=== PATIENT | female | born 1935 | race Caucasian/White ===

== ENCOUNTER → 2016-07-24 | Outpatient (CLI) | payer MEDICARE, BC | LOC: MC.RAD 11:24 | DX: Z12.31 Encounter for screening mammogram for malignant neoplasm of breast (principal); Z80.3 Family history of malignant neoplasm of breast ==

== ENCOUNTER → 2017-08-26 | Outpatient (CLI) | payer MEDICARE, BC | LOC: MC.RAD 13:11 | DX: Z12.31 Encounter for screening mammogram for malignant neoplasm of breast (principal) ==

== ENCOUNTER → 2018-09-24 | Outpatient (CLI) | payer MEDICARE, BC | LOC: MC.RAD 14:14 | DX: Z12.31 Encounter for screening mammogram for malignant neoplasm of breast (principal) ==

== ENCOUNTER → 2019-10-29 | Outpatient (CLI) | payer MEDICARE, BC ==
[~2019-10-29] MED LIST: ASPIRIN E.C. 8181 MG PO; AZULFIDINE500 MG/TAB PO; CALCIUM 600-D 61 TAB PO; CLARITIN LIQUI-10 MG PO; FOLIC ACID 11 MG/TA1 PO; MAXZIDE-25MG TA1 TAB PO; METHOTREXA2.5 MG/TAB PO; NORITATE1% TOP; OMNICEF 300MG300 MG PO; RITUXAN 10100 MG/10 IV; RITUXAN 50500 MG/50 IV; SYNTHROID0.175 MG PO; VASOTEC 5MG5 MG/TAB PO; ZANTAC 7575 MG PO; ZESTRIL 5MG5 MG PO; ZITHROMAX Z PA250 MG PO
== END ==
LOC: MC.RAD 14:13
DX: Z12.31 Encounter for screening mammogram for malignant neoplasm of breast (principal)

== ENCOUNTER → 2020-11-21 | Outpatient (CLI) | payer MEDICARE, BC | LOC: MC.RAD 10:29 | DX: Z12.31 Encounter for screening mammogram for malignant neoplasm of breast (principal) ==

== ENCOUNTER 2021-08-26 11:08 | Emergency (ER) | payer MEDICARE, BC ==
[~2021-08-26] VITALS: Ht 157.5 cm; Wt 59.1 kg
[2021-08-26 11:34] LABS: HEMATOCRIT 38.7 % (37.0-47.0); HEMOGLOBIN 12.6 g/dl (12.5-16.0); MEAN CELL VOLUME 99 fl (80.0-100.0); MEAN CORPUSCULAR HEMOGLOBIN 32 pg (27-31); MEAN CORPUSCULAR HGB CONC 33 g/dl (33.0-37.0); MEAN PLATELET VOLUME 10.8 fl (7.4-10.4); PLATELET COUNT 220 K/mm3 (130-400); RED BLOOD COUNT 3.92 M/mm3 (4.10-5.30); REDCELL DISTRIBUTION WIDTH-CV 12.6 % (11.5-14.5)
[2021-08-26 11:48] LABS: ALANINE AMINOTRANSFERASE 21 U/L (0-55); ALBUMIN 4.2 gm/dL (3.4-4.8); ALKALINE PHOSPHATASE 66 U/L (40-150); ANION GAP 12 mmol/L (7-16); AST,SGOT 25 U/L (5-34); BILIRUBIN,TOTAL 0.5 mg/dL (0.2-1.2); BLOOD UREA NITROGEN 26 mg/dL (10-20); CALCIUM 9.8 mg/dL (8.4-10.2); CARBON DIOXIDE 24 mmol/L (23-31); CHLORIDE 101 mmol/L (98-107); GLUCOSE 122 mg/dL (70-99); POTASSIUM 4.6 mmol/L (3.5-4.5); SODIUM 137 mmol/L (136-145); TOTAL PROTEIN 6.8 gm/dL (6.2-8.1)
[2021-08-26 11:51] LABS: BAND 1 % (0-10); EOSINOPHIL 1 % (0-4); LYMPHOCYTE 42 % (20.0-51.0); NEUTROPHILS 48 % (42.0-75.2); PLATELET ESTIMATE NORMAL (NORMAL)
[2021-08-26 11:55] LABS: TROPONIN-I < 0.010 ng/mL (0.00-0.033)
[2021-08-26 13:36] VITALS: BP 163/59; PULSE 67
== END 2021-08-26 13:36 | disposition home or self-care (01) ==
LOC: COL.ER 11:08
PROVIDERS: Physician Assistant
DX: I10 Essential (primary) hypertension (principal); J84.10 Pulmonary fibrosis, unspecified; Z91.040 Latex allergy status

== ENCOUNTER → 2021-12-19 | Outpatient (CLI) | payer MEDICARE, BC | LOC: MC.RAD 10:46 | DX: Z12.31 Encounter for screening mammogram for malignant neoplasm of breast (principal) ==

== ENCOUNTER 2022-07-22 17:47 | Inpatient (IN) | payer MEDICARE, BC ==
[~2022-07-22] VITALS: Ht 160 cm; Wt 55.9 kg
[~2022-07-22 17:47] MED LIST changes: +CEPHALEXIN500 M1 PO; +EUTHYROX75 MCG PO; +PEPCID COMPLETE1 CTB PO
[2022-07-22 21:52] VITALS: BP 136/47; PULSE 111; TEMP 97.9
--- NOTE | 2022-07-22 21:53 | NUR ---
PT ARRIVED TO UNIT AROUND 2134. PT ASSESSMENT AND ADMISSION COMPLETED AT THIS TIME
[2022-07-22 22:04] LABS: BASO % 0.2 % (0.0-2.0); EOS % 0.4 % (0.0-4.0); GRAN # 9.3 K/mm3 (1.4-6.5); GRAN % 84.7 % (42.2-75.2); HEMOGLOBIN 10.1 g/dl (12.5-16.0); LYMPH # 0.7 K/mm3 (1.2-3.4); LYMPH % 6.3 % (20.0-51.0); MEAN CELL VOLUME 87 fl (80.0-100.0); MEAN CORPUSCULAR HEMOGLOBIN 28 pg (27-31); MEAN CORPUSCULAR HGB CONC 33 g/dl (33.0-37.0); MONO # 0.8 K/mm3 (0.1-0.6); MONO % 7.5 % (1.7-9.3); PLATELET COUNT 646 K/mm3 (130-400); RED BLOOD COUNT 3.56 M/mm3 (4.10-5.30); REDCELL DISTRIBUTION WIDTH-CV 12.7 % (11.5-14.5)
[2022-07-22 22:05] LABS: HEMATOCRIT 30.9 % (37.0-47.0)
[2022-07-22 22:18] LABS: ALBUMIN 2.1 gm/dL (3.4-4.8); BILIRUBIN,TOTAL 0.6 mg/dL (0.2-1.2); CALCIUM 9.9 mg/dL (8.4-10.2); CREATININE, serum 0.98 mg/dL (0.57-1.11); MAGNESIUM 1.5 mg/dL (1.6-2.6); POTASSIUM 4.6 mmol/L (3.5-4.5)
[2022-07-22 23:33] VITALS: BP 137/43; PULSE 103; TEMP 99.9
[2022-07-23 04:38] VITALS: BP 117/48; PULSE 87; TEMP 98.2
--- NOTE | 2022-07-23 04:54 | NUR ---
86 yo female admitted for further care and management of possible community acquired pneumonia that has failed outpatient therapy. ht 160 cm wt 55.9 kg SCr 0.98 with estimated CrCl ~40 ml/min half life 14.7 hours Plan: Will give an initial loading dose of vancomycin 1000 mg x1 (17.9 mg/kg); followed by a maintenance regimen of vancomycin 1000 mg q18h to target a goal trough of 15-20 mcg/ml. Will follow patient's renal function, micro data, and vancomycin levels as indicated to assess for any necessary changes to regimen. Thank you for this dosing consult.
--- NOTE | 2022-07-23 05:57 | NUR ---
PT WAS ADMITTED TO ROOM 312 OVERNIGHT. ASSESSMENT AND ADMISSION COMPLETED WELL PATIENTS MED REC. PT WAS ACCOMPANIED BY HER DAUGHTER. IV STARTED, FLUIDS STARTED ALONG WITH IV ABX AND MAG REPLACEMENT. PT WAS PUT ON 2L OF O2 AT 0400 VITALS TO MAINTAIN AN OXYGEN SATURATION GREATER THAN 90% CT SCAN COMPLETED OVERNIGHT, UA AND SPUTUM SAMPLE STILL NEEDED AT THIS TIME. PT APPEARS TO BE SLEEPING AT THIS TIME, NO NEW REQUESTS.
[2022-07-23 06:50] LABS: BASO # 0.1 K/mm3 (0.0-0.2); BASO % 0.6 % (0.0-2.0); CALCIUM 8.4 mg/dL (8.4-10.2); CREATININE, serum 0.82 mg/dL (0.57-1.11); EOS # 0.1 K/mm3 (0.0-0.7); EOS % 0.9 % (0.0-4.0); GRAN # 6.4 K/mm3 (1.4-6.5); GRAN % 74.2 % (42.2-75.2); LYMPH # 1.1 K/mm3 (1.2-3.4); LYMPH % 13.1 % (20.0-51.0); MEAN CELL VOLUME 85 fl (80.0-100.0); MEAN CORPUSCULAR HGB CONC 34 g/dl (33.0-37.0); MEAN PLATELET VOLUME 9.6 fl (7.4-10.4); MONO # 0.9 K/mm3 (0.1-0.6); MONO % 10.1 % (1.7-9.3); POTASSIUM 4.4 mmol/L (3.5-4.5); RED BLOOD COUNT 2.81 M/mm3 (4.10-5.30); REDCELL DISTRIBUTION WIDTH-CV 12.4 % (11.5-14.5)
[2022-07-23 06:52] LABS: HEMOGLOBIN 8.1 g/dl (12.5-16.0); MEAN CORPUSCULAR HEMOGLOBIN 29 pg (27-31)
[2022-07-23 06:53] LABS: PLATELET COUNT 538 K/mm3 (130-400)
[2022-07-23 07:10] VITALS: BP 126/44; PULSE 80; TEMP 99.4
--- NOTE | 2022-07-23 07:45 | NUR ---
Shift assessment complete. PAtient is A&O x 4. Right forearm IV is intact and infusing NS 0.9% at 100ml/HR. On O2 at 2L NC. Breath sounds diminished @ bilateral bases. Coarse. No shortness of air noted. No productive cough noted. O2 sats at 96%. Denies any pain at this time. Call light left within reach.
--- NOTE | 2022-07-23 15:18 | NUR ---
Tar Man met with patient to discuss discharge planning. Patient lives alone in [place] and sees Dr. Samano for primary care. Patient obtains medications from [facility] with no difficulties. Patient advised she wears oxygen at night and gets her supplies from [facility]. Patient does not normally use any other DME but advised her daughter brought her a cane to use recently. Patient stated she is normally independent with ADLS. Patient has two daughters, Vandana (ph#[phone]) and Debra (ph#[phone]). Vandana lives locally and Debra is a Nurse Practitioner in [place]. SW reviewed PT/OT recommendation for Home Health services and patient is open to this. SW provided Medicare.gov list of HH agencies to review. FREDRICK also contacted patient's daughter, Vandana to review discharge plan. Vandana advised patient has had some difficulties recently with ADLS so she agrees HH would benefit patient. Discharge Plan: Home with HH
--- NOTE | 2022-07-23 16:00 | NUR ---
PER INFECTIOUS DISEASE, PATIENT NEEDS TO SWITCH TO NEG PRESSURE ROOM D/T PENDING TB TEST.\ PATIENT NOW RESTING IN 359. NO NEEDS OR COMPLAINTS. THIS RN INFORMED PATIENTS JASON Lewis
[2022-07-23 16:17] VITALS: BP 130/49; PULSE 83; TEMP 98.6
--- NOTE | 2022-07-23 18:38 | NUR ---
PATIENT AWAKE AND ALERT, RESTING IN BED. PATIENTS DAUGHTER AT BDSIDE. PATIENT DENIES ANY NEEDS OR COMPLAINTS AT THIS TIME. CALL LIGHT WTIH IN REACH.
[2022-07-23 20:07] VITALS: BP 155/54; PULSE 97; TEMP 99.8
[2022-07-23 23:55] VITALS: BP 149/52; PULSE 92; TEMP 99.6
--- NOTE | 2022-07-23 23:56 | NUR ---
2345 RN AT BEDSIDE TO GIVE PATIENT IV ABX, RN GOT VITAL SIGNS WHILE AT BEDSIDE, PTS OXYGEN SATURATION WAS HANGING OUT AROUND 88% ON 1 L OF OXYGEN DONOR SERVICES TECHNICIAN THE PATIENT TO 3L OF OXYGEN TO GET THE PATIENTS O2 SATURATIONS TO 91%, PT DENIES ANY SHORTNESS OF BREATH AT THIS TIME, BUT STILL IS COUGHING
[2022-07-24 03:45] VITALS: BP 152/52; PULSE 95; TEMP 100
--- NOTE | 2022-07-24 05:10 | NUR ---
OVERNIGHT PATIENT WAS ABLE TO REST, PT DENIED ANY PAIN. PTS TEMPERATURE AT 0400 WAS 100.0 RECHECK WAS 98.3 PT OXYGEN SATURATIONS ON 1 L WERE 88 RN HAD TO BUMP PATIENT UP TO 4L. PT OXYGEN LEVEL NOW RESTING AT 92. PT HAS NO NEW REQUESTS AT THIS TIME.
[2022-07-24 07:32] VITALS: BP 138/48; PULSE 87; TEMP 99.1
[2022-07-24 07:36] LABS: ALBUMIN 1.5 gm/dL (3.4-4.8); BILIRUBIN,TOTAL 0.4 mg/dL (0.2-1.2); C-REACTIVE PROTEIN 18.45 mg/dL (0.00-0.50); CALCIUM 8.2 mg/dL (8.4-10.2); CREATININE, serum 0.68 mg/dL (0.57-1.11); POTASSIUM 4.2 mmol/L (3.5-4.5); TOTAL PROTEIN 4.5 gm/dL (6.2-8.1)
[2022-07-24 07:45] LABS: BASO % 0.4 % (0.0-2.0); EOS # 0.2 K/mm3 (0.0-0.7); EOS % 1.9 % (0.0-4.0); GRAN # 6.1 K/mm3 (1.4-6.5); GRAN % 77.3 % (42.2-75.2); LYMPH # 0.8 K/mm3 (1.2-3.4); LYMPH % 10.4 % (20.0-51.0); MEAN CELL VOLUME 85 fl (80.0-100.0); MEAN CORPUSCULAR HGB CONC 34 g/dl (33.0-37.0); MEAN PLATELET VOLUME 9.4 fl (7.4-10.4); MONO # 0.7 K/mm3 (0.1-0.6); MONO % 9.1 % (1.7-9.3); PLATELET COUNT 553 K/mm3 (130-400); RED BLOOD COUNT 2.89 M/mm3 (4.10-5.30); REDCELL DISTRIBUTION WIDTH-CV 12.6 % (11.5-14.5)
[2022-07-24 07:46] LABS: HEMATOCRIT 24.6 % (37.0-47.0); HEMOGLOBIN 8.3 g/dl (12.5-16.0); MEAN CORPUSCULAR HEMOGLOBIN 29 pg (27-31)
--- NOTE | 2022-07-24 09:24 | NUR ---
Pt assessment complete. Pt is sitting up in bed eating breakfast, daughter at bedside. Pt is A/O x4. Her breathing is even and unlabored on 3L O2 via NC. Pt denies SOB. No pain at this time. Pt denies any N/V. IVF infusing, site free from any complications. Dr. Stewart in to see patient at this time.
[2022-07-24 10:54] LABS: INR 1.2 (0.8-3.0); PROTHROMBIN TIME 14.3 SECONDS (9.7-12.8)
[2022-07-24 10:55] VITALS: BP 146/55; PULSE 88; TEMP 98.3
[2022-07-24 15:15] VITALS: BP 149/44; PULSE 89; TEMP 98.6
--- NOTE | 2022-07-24 19:09 | NUR ---
Pt had uneventful day. Daughters at bedside during the day. Pt on 3L O2 via NC. Pt denied any pain or SOB. No needs at this time.
[2022-07-24 19:15] LABS: TB GOLD INTERPRETATION Negative (Negative)
[2022-07-24 19:35] VITALS: BP 143/56; PULSE 98; TEMP 99
--- NOTE | 2022-07-24 23:11 | NUR ---
Pt in airborne precautions. Shift assessment completed at 2044. A&O x4 at this time. O2 at 3L per NC. LAC peripheral line is CDI. Fluids running at this time. No complains of SOB, dizziness, headache, pain or any other discomfort. Medication given per emar. Belongings and call light are within reach.
[2022-07-25] VITALS (7 sets, daily range): BP systolic 117–140; BP diastolic 42–53; PULSE 69–94; TEMP 97.4–99.3
[2022-07-25 06:45] LABS: BASO % 0.4 % (0.0-2.0); EOS # 0.2 K/mm3 (0.0-0.7); EOS % 2.1 % (0.0-4.0); GRAN # 6.6 K/mm3 (1.4-6.5); GRAN % 77.5 % (42.2-75.2); LYMPH % 11.5 % (20.0-51.0); MEAN CELL VOLUME 87 fl (80.0-100.0); MEAN CORPUSCULAR HGB CONC 33 g/dl (33.0-37.0); MEAN PLATELET VOLUME 9.3 fl (7.4-10.4); MONO # 0.7 K/mm3 (0.1-0.6); MONO % 7.6 % (1.7-9.3); PLATELET COUNT 556 K/mm3 (130-400); RED BLOOD COUNT 2.84 M/mm3 (4.10-5.30); REDCELL DISTRIBUTION WIDTH-CV 12.8 % (11.5-14.5)
[2022-07-25 06:51] LABS: HEMATOCRIT 24.7 % (37.0-47.0); HEMOGLOBIN 8.2 g/dl (12.5-16.0); MEAN CORPUSCULAR HEMOGLOBIN 29 pg (27-31)
[2022-07-25 06:57] LABS: CALCIUM 8.3 mg/dL (8.4-10.2); CREATININE, serum 0.62 mg/dL (0.57-1.11)
--- NOTE | 2022-07-25 13:03 | NUR ---
Patient scheduled telehealth visit with Dr. Paulino, Infectious Disease. Pt consents to visit. Daughter present in room. Equipment set up, audio and video connections established. Visit conducted by . No technical concerns or issues.
--- NOTE | 2022-07-25 15:52 | NUR ---
Clinical Counselor followed up with patient and her daughter, Debra after rounds to discuss SNF placement. SW provided Medicare.gov list of SNFs and patient's preferences are 1) [facility] and 2) [facility]. SW contacted and faxed referrals to both facilities.
[2022-07-26 03:33] VITALS: BP 121/52; PULSE 71; TEMP 97.8
--- NOTE | 2022-07-26 07:30 | NUR ---
Assessment complete. A&Ox4. Denies pain, nausea or shortness of breath. VS remain stable. O2@1L/NC. Has been NPO since midnight. LCTA. Plan of care discussed for this shift to include meds/possible bronch/calling for questions/concerns. Verbalizes understanding. Call light in reach. Will monitor.
[2022-07-26 08:25] VITALS: BP 128/40; PULSE 75
[2022-07-26 09:15] LABS: BASO % 0.2 % (0.0-2.0); EOS % 0.1 % (0.0-4.0); GRAN # 6.5 K/mm3 (1.4-6.5); LYMPH # 1.1 K/mm3 (1.2-3.4); LYMPH % 12.6 % (20.0-51.0); MEAN CELL VOLUME 86 fl (80.0-100.0); MEAN CORPUSCULAR HGB CONC 33 g/dl (33.0-37.0); MEAN PLATELET VOLUME 9.5 fl (7.4-10.4); MONO # 0.7 K/mm3 (0.1-0.6); MONO % 8.1 % (1.7-9.3); PLATELET COUNT 616 K/mm3 (130-400); RED BLOOD COUNT 3.19 M/mm3 (4.10-5.30); REDCELL DISTRIBUTION WIDTH-CV 12.9 % (11.5-14.5)
--- NOTE | 2022-07-26 09:16 | NUR ---
Patient noted to have white patchy areas on tongue with redness. Denies pain to the tongue but states it feels dry and scratchy. Spoke with JOSELINE Boothe and new orders received.
[2022-07-26 09:18] LABS: HEMATOCRIT 27.4 % (37.0-47.0); MEAN CORPUSCULAR HEMOGLOBIN 28 pg (27-31)
[2022-07-26 09:25] LABS: CALCIUM 8.7 mg/dL (8.4-10.2); CREATININE, serum 0.62 mg/dL (0.57-1.11); POTASSIUM 3.9 mmol/L (3.5-4.5)
[2022-07-26 12:17] VITALS: BP 131/49; PULSE 89; TEMP 97.6
--- NOTE | 2022-07-26 13:23 | NUR ---
Patient scheduled telehealth visit with Dr. Paulino, Infectious Disease. Pt consents to visit. Patients daughter Debra present in room. PT sitting in chair. Equipment set up, audio and video connections established. Visit conducted by . No technical concerns or issues.
[2022-07-26 15:14] VITALS: BP 145/50; PULSE 95; TEMP 97.8
--- NOTE | 2022-07-26 15:23 | NUR ---
Yield Improvement Engineer faxed clinical updates to Julissa at [facility] who advised they can accept patient for admit tomorrow. SW updated Hospitalist. FREDRICK met with patient and her daughter, Neema to provide update. FREDRICK reviewed IM form with patient who verbalized understanding and provided signature. SW placed form in chart and provided copy to patient. Patient will need covid test prior to discharge, which was ordered by Hospitalist. Discharge Plan: [facility]
--- NOTE | 2022-07-26 19:18 | NUR ---
Patient had an uneventful day. Covid swab negative for placement. VS remained stable. Is suppose to discharge tomorrow to [facility]. No questions/concerns. Call light in reach. Will monitor.
[2022-07-26 20:30] VITALS: BP 128/41; PULSE 91; TEMP 97.8
[2022-07-26 23:39] VITALS: BP 165/55; PULSE 89; TEMP 97.6
[2022-07-27 03:50] VITALS: BP 145/58; PULSE 89; TEMP 98.1
[2022-07-27 08:00] VITALS: BP 182/64; PULSE 120; TEMP 99
[2022-07-27 12:00] VITALS: BP 123/43; PULSE 87; TEMP 97.6
[2022-07-27 13:41] LABS: MEAN CELL VOLUME 86 fl (80.0-100.0); MEAN CORPUSCULAR HGB CONC 34 g/dl (33.0-37.0); MEAN PLATELET VOLUME 9.5 fl (7.4-10.4); PLATELET COUNT 632 K/mm3 (130-400); RED BLOOD COUNT 3.04 M/mm3 (4.10-5.30); REDCELL DISTRIBUTION WIDTH-CV 12.9 % (11.5-14.5)
[2022-07-27 13:45] LABS: CALCIUM 8.8 mg/dL (8.4-10.2); CREATININE, serum 0.72 mg/dL (0.57-1.11); POTASSIUM 4.1 mmol/L (3.5-4.5)
--- NOTE | 2022-07-27 13:49 | NUR ---
Interlocking Installer confirms with Danyell RAO that patient will not d/c today to placement. Interlocking Installer contacted [facility] and updated Julissa client project coordinator. *Discharge plan: COUNT [facility]*
[2022-07-27 13:57] LABS: HEMOGLOBIN 8.7 g/dl (12.5-16.0); MEAN CORPUSCULAR HEMOGLOBIN 29 pg (27-31)
[2022-07-27 14:28] LABS: BAND 6 % (0-10); LYMPHOCYTE 1 % (20.0-51.0); NEUTROPHILS 91 % (42.0-75.2); PLATELET ESTIMATE INCREASED (NORMAL)
[2022-07-27 16:14] VITALS: BP 125/36; PULSE 86; TEMP 97.4
[2022-07-27 19:57] VITALS: BP 127/49; PULSE 83; TEMP 97.5
[2022-07-27 23:22] VITALS: BP 149/58; PULSE 79; TEMP 97.7
[2022-07-28 04:20] VITALS: BP 149/56; PULSE 79; TEMP 97.7
[2022-07-28 07:01] LABS: BASO % 0.1 % (0.0-2.0); EOS % 0.1 % (0.0-4.0); GRAN # 7.8 K/mm3 (1.4-6.5); GRAN % 81.9 % (42.2-75.2); LYMPH # 0.9 K/mm3 (1.2-3.4); LYMPH % 9.5 % (20.0-51.0); MEAN CELL VOLUME 89 fl (80.0-100.0); MEAN CORPUSCULAR HGB CONC 32 g/dl (33.0-37.0); MEAN PLATELET VOLUME 9.7 fl (7.4-10.4); MONO # 0.7 K/mm3 (0.1-0.6); MONO % 7.2 % (1.7-9.3); PLATELET COUNT 624 K/mm3 (130-400); RED BLOOD COUNT 2.89 M/mm3 (4.10-5.30); REDCELL DISTRIBUTION WIDTH-CV 13.2 % (11.5-14.5)
[2022-07-28 07:06] LABS: HEMATOCRIT 25.7 % (37.0-47.0); HEMOGLOBIN 8.3 g/dl (12.5-16.0); MEAN CORPUSCULAR HEMOGLOBIN 29 pg (27-31)
[2022-07-28 07:21] LABS: C-REACTIVE PROTEIN 12.24 mg/dL (0.00-0.50); CALCIUM 8.8 mg/dL (8.4-10.2); CREATININE, serum 0.64 mg/dL (0.57-1.11); POTASSIUM 3.9 mmol/L (3.5-4.5)
[2022-07-28 07:25] VITALS: BP 154/52; PULSE 80; TEMP 98.4
[2022-07-28 11:28] VITALS: BP 153/62; PULSE 92; TEMP 98.2
[2022-07-28 13:13] LABS: PROTHROMBIN TIME 11.9 SECONDS (9.7-12.8)
--- NOTE | 2022-07-28 14:45 | NUR ---
SW informed patient could potentially dc on this day. FREDRICK spoke to nursing staff and physician about potential discharge. Both provided patient would not be discharging on this day and would have a olesya tomorrow.
[2022-07-28 15:35] VITALS: BP 110/49; PULSE 98; TEMP 98.5
[2022-07-28 20:30] VITALS: BP 160/69; PULSE 90; TEMP 97.6
[2022-07-28 23:40] VITALS: BP 165/74; PULSE 96; TEMP 97.6
[2022-07-29] VITALS (13 sets, daily range): BP systolic 129–176; BP diastolic 48–70; PULSE 84–126; TEMP 97.6–99.8
--- NOTE | 2022-07-29 01:56 | NUR ---
KITTY TREVIZO CALLED TO CONFIRM IF SHE WANTED LR @30MLS STARTED ON PATIENT. KITTY STATED OKAY TO HOLD MEDICATION. PA ALSO ASKED IF SHE WANTED LOVENOX GIVEN TO PATIENT SINCE PATIENT WAS SCHEDULED FOR A BRONCHOSCOPY TOMORROW MORNING. JOSELINE STATED OKAY TO HOLD MEDICATION. NO FURTHER ORDERS RECIEVED AT THIS TIME
[2022-07-29 06:45] LABS: MEAN CORPUSCULAR HGB CONC 34 g/dl (33.0-37.0); PLATELET COUNT 672 K/mm3 (130-400); RED BLOOD COUNT 3.36 M/mm3 (4.10-5.30)
[2022-07-29 06:50] LABS: HEMATOCRIT 28.2 % (37.0-47.0); HEMOGLOBIN 9.5 g/dl (12.5-16.0); MEAN CELL VOLUME 84 fl (80.0-100.0); MEAN CORPUSCULAR HEMOGLOBIN 28 pg (27-31)
[2022-07-29 07:09] LABS: CREATININE, serum 0.66 mg/dL (0.57-1.11); POTASSIUM 4.1 mmol/L (3.5-4.5)
[2022-07-29 08:00] LABS: BAND 4 % (0-10); LYMPHOCYTE 12 % (20.0-51.0); METAMYELOCYTE 1 % (0-0); NEUTROPHILS 77 % (42.0-75.2); PLATELET ESTIMATE INCREASED (NORMAL)
--- NOTE | 2022-07-29 08:30 | NUR ---
Assessment complete. Tele called to report pt tachycardiac at shift change. Upon entering room, PCT was assisting pt back to bed from bathroom. Pt denied heart palpitations or lightheadedness at that time. HR now low 100's. O2 2L/NC. Pt to bronchoscopy at this time via bed. LR infusing at 30ml/hr to IV site in LFA.
--- NOTE | 2022-07-29 09:25 | NUR ---
Pt returns to room from bronchoscopy. VSS- see flowsheet. Stefania RN notifies this nurse that pt was febrile at 100.0. Pt a/o x4. Denies pain. Daughter at bedside.
--- NOTE | 2022-07-29 09:59 | NUR ---
Levothyroxine administered po. Pt wishes to wait for the rest of her medication when her breakfast arrives.
--- NOTE | 2022-07-29 12:47 | NUR ---
Pt to chair x1 assist with therapy. Pt had requested morning medications to be given at a later time- with lunch. Morning medications administered with applesauce. Pt still febrile at 99.8. Will continue to monitor. Denies pain or needs at this time.
--- NOTE | 2022-07-29 15:09 | NUR ---
Mechanical Adjuster was contacted by Debra, daughter who provided DPOA-HC via email. SW printed copy and placed it in chart. SW also faxed clinical updates to [facility]. Discharge Plan: [facility]
--- NOTE | 2022-07-29 15:20 | NUR ---
Telehealth visit conducted with Dr. Dilip Paulino, Infectious Disease. Patient consented to visit. Patient sitting in chair at bedside. Telecommunication initiated without any difficulties during exam. All questions were answered by Dr. Paulino
--- NOTE | 2022-07-29 16:03 | NUR ---
Julissa, at [facility], reports that since the hospital did the bronch, they would need to see the culture results from it.
--- NOTE | 2022-07-29 18:33 | NUR ---
Pt up in chair all of this afternoon. Both/one of daughters at bedside most of day. Pt denied pain, SOA or other needs throughout day. IVF d/c'd after bronchoscopy completed. Febrile at times today with tmax 99.8. Most recent temp 98.7. Continues to wear O2 at 2L/NC.
[2022-07-30 04:32] VITALS: BP 141/59; PULSE 68; TEMP 97.8
[2022-07-30 06:46] LABS: MEAN CELL VOLUME 88 fl (80.0-100.0); MEAN CORPUSCULAR HGB CONC 32 g/dl (33.0-37.0); MEAN PLATELET VOLUME 9.6 fl (7.4-10.4); PLATELET COUNT 583 K/mm3 (130-400); RED BLOOD COUNT 3.06 M/mm3 (4.10-5.30); REDCELL DISTRIBUTION WIDTH-CV 13.4 % (11.5-14.5)
[2022-07-30 06:48] LABS: HEMATOCRIT 26.9 % (37.0-47.0); HEMOGLOBIN 8.6 g/dl (12.5-16.0); MEAN CORPUSCULAR HEMOGLOBIN 28 pg (27-31)
[2022-07-30 06:59] LABS: CREATININE, serum 0.64 mg/dL (0.57-1.11)
[2022-07-30 07:08] LABS: BAND 2 % (0-10); HYPOCHROMIA 1+; LYMPHOCYTE 14 % (20.0-51.0); MYELOCYTE 1 % (0-0); NEUTROPHILS 76 % (42.0-75.2); PLATELET ESTIMATE INCREASED (NORMAL)
[2022-07-30 08:00] VITALS: BP 156/61; PULSE 91; TEMP 97.4
[2022-07-30] MEDS ORDERED: FERROUS SU325 MG/TAB PO (08:08)
[2022-07-30] MEDS ORDERED: FOLIC ACID 11 MG/TA1 PO (08:09)
[2022-07-30] MEDS ORDERED: NYSTATIN OR100 MU/ML PO (08:12)
[2022-07-30] MEDS ORDERED: MONODOX100 PO (08:12)
[2022-07-30] MEDS ORDERED: CEFTIN500 MG PO (08:13)
--- NOTE | 2022-07-30 08:40 | NUR ---
Assessment complete. Pt sitting up in chair. A/O to name, , year and location. SpO2 98% on RA. Denies pain or needs at this time.
[2022-07-30] MEDS ORDERED: PREDNISONE20 MG PO (09:42)
[2022-07-30 12:00] VITALS: BP 137/50; PULSE 92; TEMP 98
--- NOTE | 2022-07-30 12:19 | NUR ---
Discharge orders rec'd- pt to go to [facility] this afternoon. Tele d/c'd. INT to RFA d/c'd with cath tip intact. Daughter at bedside and will assist getting pt dressed.
--- NOTE | 2022-07-30 12:50 | NUR ---
Report called to JALEN Woo at [facility] at [facility].
--- NOTE | 2022-07-30 13:15 | NUR ---
Pt discharged to [facility]- escorted by [facility] staff- via w/c. Daughter at side.
--- NOTE | 2022-07-30 13:31 | NUR ---
FREDRICK updated the PA about [facility] wanting to know the culture results from the bronch. The PA reports that Dr. Stewart has documented that in the preliminarys there has been no growth and the clinical team would still be ready to discharge her today. FREDRICK notified and faxed updates to Julissa at [facility]. Julissa reports that they are able to accept the patient. FREDRICK met with the patient and her daughter, Debra, to update. FREDRICK presented and read the form outloud to both of them. The patient verbalized understanding and agreement to discharge today. She signed the form and declined a copy. The patient discharged today, 07/30, to [facility] for a skilled stay. Transportation was scheduled at 1300, via [facility]. No additional needs at this time.
== END 2022-07-30 13:15 | DRG 193 ==
LOC: MEDICAL 17:47
PROVIDERS: Family Medicine; Internal Medicine Pulmonary Disease; Physician Assistant; Student in an Organized Health Care Education/Training Program; ADMIT Internal Medicine
PROC: 0BDC8ZX Extraction of Right Upper Lung Lobe, Via Natural or Artificial Opening Endoscopic, Diagnostic (ICD-10-PCS; 2022-07-29)
PROC: 0BDD8ZX Extraction of Right Middle Lung Lobe, Via Natural or Artificial Opening Endoscopic, Diagnostic (ICD-10-PCS; 2022-07-29)
PROC: 0BDF8ZX Extraction of Right Lower Lung Lobe, Via Natural or Artificial Opening Endoscopic, Diagnostic (ICD-10-PCS; principal; 2022-07-29 08:30)
DX: J18.1 Lobar pneumonia, unspecified organism (principal); G93.41 Metabolic encephalopathy; J96.01 Acute respiratory failure with hypoxia; D84.9 Immunodeficiency, unspecified; E87.1 Hypo-osmolality and hyponatremia; J90 Pleural effusion, not elsewhere classified; D64.9 Anemia, unspecified; H70.91 Unspecified mastoiditis, right ear; J98.09 Other diseases of bronchus, not elsewhere classified; Z20.822 Contact with and (suspected) exposure to COVID-19; D75.839 Thrombocytosis, unspecified; B37.9 Candidiasis, unspecified; I10 Essential (primary) hypertension; G47.33 Obstructive sleep apnea (adult) (pediatric); M41.9 Scoliosis, unspecified; E83.42 Hypomagnesemia; E03.9 Hypothyroidism, unspecified; M06.9 Rheumatoid arthritis, unspecified; Z79.890 Hormone replacement therapy; Z99.81 Dependence on supplemental oxygen; Z90.89 Acquired absence of other organs; Z90.710 Acquired absence of both cervix and uterus; Z91.040 Latex allergy status; Z86.16 Personal history of COVID-19; Z23 Encounter for immunization
CPT/HCPCS: J0360; J0692; J1650; J1940; J2704; J3370; J3475; J7030; J7050; J7120; J7512; Q9967

== ENCOUNTER 2022-08-14 15:11 | Emergency (ER) | payer MEDICARE, BC ==
[~2022-08-14] VITALS: Ht 157.5 cm; Wt 49.8 kg
[~2022-08-14 15:11] MED LIST changes: +CEFTIN500 MG PO; +FERROUS SU325 MG/TAB PO; +MONODOX100 PO; +NYSTATIN OR100 MU/ML PO; +PREDNISONE20 MG PO
[2022-08-14 15:14] VITALS: TEMP 98.2
[2022-08-14 15:47] LABS: BASO # 0.1 K/mm3 (0.0-0.2); BASO % 1.2 % (0.0-2.0); EOS # 0.2 K/mm3 (0.0-0.7); EOS % 2.5 % (0.0-4.0); GRAN # 6.7 K/mm3 (1.4-6.5); GRAN % 68.8 % (42.2-75.2); HEMOGLOBIN 11.4 g/dl (12.5-16.0); LYMPH # 1.5 K/mm3 (1.2-3.4); MEAN CELL VOLUME 88 fl (80.0-100.0); MEAN CORPUSCULAR HEMOGLOBIN 29 pg (27-31); MEAN CORPUSCULAR HGB CONC 33 g/dl (33.0-37.0); MEAN PLATELET VOLUME 9.6 fl (7.4-10.4); MONO # 1.1 K/mm3 (0.1-0.6); MONO % 11.6 % (1.7-9.3); PLATELET COUNT 423 K/mm3 (130-400); RED BLOOD COUNT 3.95 M/mm3 (4.10-5.30); REDCELL DISTRIBUTION WIDTH-CV 15.9 % (11.5-14.5)
[2022-08-14 15:48] LABS: HEMATOCRIT 34.7 % (37.0-47.0)
[2022-08-14 16:03] LABS: ALBUMIN 2.6 gm/dL (3.4-4.8); BILIRUBIN,TOTAL 0.6 mg/dL (0.2-1.2); CALCIUM 9.7 mg/dL (8.4-10.2); CREATININE, serum 1.44 mg/dL (0.57-1.11); POTASSIUM 4.2 mmol/L (3.5-4.5)
[2022-08-14 16:22] LABS: TSH w REFLEX 1.345 uIU/mL (0.350-4.940)
[2022-08-14 17:47] VITALS: BP 135/59; PULSE 86
== END 2022-08-14 17:48 | disposition home or self-care (01) ==
LOC: COL.ER 15:11
PROVIDERS: Emergency Medicine
DX: E86.0 Dehydration (principal); R00.0 Tachycardia, unspecified; R73.9 Hyperglycemia, unspecified; Z28.310 Unvaccinated for COVID-19; Z91.040 Latex allergy status
CPT/HCPCS: J7040

== ENCOUNTER 2023-11-21 15:36 | Inpatient (IN) | payer MEDICARE, BC ==
[~2023-11-21] VITALS: Ht 157.5 cm; Wt 68.0 kg
[~2023-11-21 15:36] MED LIST changes: +CELEBREX 1100 MG/CAP PO; +CLARITIN 1010 MG/TAB PO; +DEBROX OT; +DULCOLAX S10 MG/SUPP RC; +IMODIUM 2MG CAPS2 MG PO; +METROGEL1% TOP; +MILK OF MA400 MG/52 PO; +MULTIPLE VITAMI1 TA5 PO; +MYLANTA 150 ML150 M1 PO; +PROBIOTIC BLEN1 EACH PO; +TYLENOL SU650 MG/SUP RC; +VASOTEC 10M10 MG/TAB PO; -VASOTEC 5MG5 MG/TAB PO; +ZOVIRAX 200MG200 MG PO
[2023-11-21] MEDS ORDERED: NS 1,000 ML IV ONE (16:45)
[2023-11-21 17:32] LABS: COLLECTION METHOD CLEAN CATCH
[2023-11-21 17:40] LABS: HEMOGLOBIN 10.3 g/dl (12.5-16.0); MEAN CELL VOLUME 97 fl (80.0-100.0); MEAN CORPUSCULAR HEMOGLOBIN 32 pg (27-31); MEAN CORPUSCULAR HGB CONC 33 g/dl (33.0-37.0); MEAN PLATELET VOLUME 10.8 fl (7.4-10.4); PLATELET COUNT 303 K/mm3 (130-400); RED BLOOD COUNT 3.23 M/mm3 (4.10-5.30); REDCELL DISTRIBUTION WIDTH-CV 12.3 % (11.5-14.5)
[2023-11-21 17:41] LABS: HEMATOCRIT 31.3 % (37.0-47.0)
[2023-11-21 17:52] LABS: URINE APPEARANCE TURBID (CLEAR/HAZY); URINE BLOOD 1+ (NEGATIVE); URINE COLOR Dark Yellow (YELLOW); URINE GLUCOSE NEGATIVE (NEGATIVE); URINE KETONE 1+ (NEGATIVE); URINE NITRATE NEGATIVE (NEGATIVE); URINE PROTEIN(semi-quant) 2+ (NEGATIVE)
[2023-11-21 18:03] LABS: ALBUMIN 2.5 g/dL (3.4-4.8); BILIRUBIN,TOTAL 0.5 mg/dL (0.2-1.2); CALCIUM 9.5 mg/dL (8.4-10.2); CREATININE, serum 0.77 mg/dL (0.57-1.11); POTASSIUM 4.1 mEq/L (3.5-4.5); TOTAL PROTEIN 5.6 g/dl (6.2-8.1); URINE WBC 20-50 /hpf (0-2)
[2023-11-21 18:04] LABS: URINE BACTERIA MANY /hpf (NONE SEEN)
[2023-11-21 18:10] LABS: C-REACTIVE PROTEIN 34.58 mg/dL (0.00-0.50); TROPONIN-I 0.039 ng/mL (0.00-0.033)
[2023-11-21 18:28] LABS: BAND 10 % (0-10); BASOPHIL 1 % (0-2); LYMPHOCYTE 8 % (20.0-51.0); METAMYELOCYTE 2 % (0-0); NEUTROPHILS 69 % (42.0-75.2); PLATELET ESTIMATE NORMAL (NORMAL)
[2023-11-21] MEDS ORDERED: Docusate Sodium 100 MG CAP PO PRN (18:30)
[2023-11-21] MEDS ORDERED: Polyethylene Glycol 3350 17 GM PDS PO PRN (18:30)
[2023-11-21] MEDS ORDERED: Ondansetron 4 MG/2 ML VIAL IV PRN (18:30)
[2023-11-21] MEDS ORDERED: Acetaminophen 325 MG TAB PO PRN (18:30)
[2023-11-21] MEDS ORDERED: cefTRIAXone 1 G in Water For Injection,Sterile 10 ML IV ONE (18:30)
[2023-11-21] MEDS ORDERED: Loratadine 10 MG TAB PO PRN (18:45)
[2023-11-21] MEDS ORDERED: NS 1,000 ML IV SCH (18:45)
[2023-11-21 19:35] LABS: C-REACTIVE PROTEIN 34.55 mg/dL (0.00-0.50)
--- NOTE | 2023-11-21 20:23 | NUR ---
REPORT RECIEVED FROM JOESPH SAMPSON IN ER AT THIS TIME. JOESPH VERBALIZED UNDERSTANDING THAT PRIMARY MEDICAL RN WOULD CALL ONCE ROOM CLEAN.
--- NOTE | 2023-11-21 21:35 | NUR ---
JOESPH NOTIFIED THAT ROOM WAS READY.
--- NOTE | 2023-11-21 21:53 | NUR ---
FEMALE PATIENT ARRIVED TO ROOM #310 VIA WHEELCHAIR FROM ER. PATIENT ASSISTED TO BED WITH STAND BY ASSIST. GAIT STEADY. NS INFUSING INTO LEFT FOREARM WITH NO COMPLICATIONS NOTED. PATIENT CHANGED INTO YELLOW GOWN AND YELLOW NON-SKID SOCKS WERE APPLIED. INITAL INTAKE AND INITAL ASSESSMENT COMPLETED. PATIENT TOLERATED WELL. DAUGHTER CELE AT BEDSIDE. PATIENT ALERT AND ORIENTED X4. PATIENT ON ROOM AIR. PATIENT VERBALIZED UNDERSTANING OF CALL LIGHT AND BED CONTROLS. PATIENT GIVEN PITCHER OF WATER WITH ICE, TOOTH BRUSH, TOOTH PASTE, AND COMB. PATIENT DENIES ANY OTHER NEEDS AT THIS TIME. MANUAL BLOOD PRESSURE TAKEN BY PRIMARY NURSE. SEE CHARTED BLOOD PRESSURE. BED IN LOW POSITION WITH WHEELS LOCKED WITH RAILS UP X3 AND CALL LIGHT WITHIN REACH.
[2023-11-21 22:00] VITALS: BP_SYST 162
[2023-11-21 22:17] VITALS: BP 181/73; PULSE 98; TEMP 98.2
[2023-11-21 22:28] VITALS: BP 162/66
[2023-11-21 23:39] VITALS: BP 183/74; PULSE 99; TEMP 100.8
[2023-11-21] MEDS ORDERED: TYLENOL 325MG325 MG PO (23:53)
[2023-11-22] VITALS (12 sets, daily range): BP systolic 137–183; BP diastolic 61–72; PULSE 77–100; TEMP 98.1–99.1
--- NOTE | 2023-11-22 06:40 | NUR ---
PT RESTING IN BED. PT IS AXOX2-3. PT IS ON 2L NC. PT HAS CALL LIGHT AND INSTRUCTED TO CALL W ALL NEEDS. FALL PRECAUTIONS IN PLACE AND BEDALARM ACTIVE.
[2023-11-22 06:52] LABS: CALCIUM 8.2 mg/dL (8.4-10.2); CREATININE, serum 0.68 mg/dL (0.57-1.11)
[2023-11-22 08:13] LABS: HEMOGLOBIN 10.8 g/dl (12.5-16.0); MEAN CELL VOLUME 97 fl (80.0-100.0); MEAN CORPUSCULAR HEMOGLOBIN 32 pg (27-31); MEAN CORPUSCULAR HGB CONC 33 g/dl (33.0-37.0); MEAN PLATELET VOLUME 10.7 fl (7.4-10.4); PLATELET COUNT 332 K/mm3 (130-400); RED BLOOD COUNT 3.36 M/mm3 (4.10-5.30); REDCELL DISTRIBUTION WIDTH-CV 12.5 % (11.5-14.5)
[2023-11-22 08:27] LABS: HEMATOCRIT 32.5 % (37.0-47.0)
[2023-11-22] MEDS ORDERED: Doxycycline Monohydrate 100 MG CAP PO SCH (09:34)
[2023-11-22 09:37] LABS: BAND 9 % (0-10); LYMPHOCYTE 13 % (20.0-51.0); NEUTROPHILS 69 % (42.0-75.2)
[2023-11-22 09:38] LABS: PLATELET ESTIMATE NORMAL (NORMAL)
[2023-11-22] MEDS ORDERED: Cefepime 1 G in Water For Injection,Sterile 10 ML IV SCH (10:00)
--- NOTE | 2023-11-22 11:01 | NUR ---
FREDRICK met with patient and daughter Vandana ([phone]) to complete initial assessment for discharge planning. Patient alert and oriented x 4, able to answer questions. 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 Patient sees Dr. Samano as her PCP and uses facility pharmacy. Patient only uses oxygen at night provided by [facility]. Patient ambulates independently. Patient has named her two daughters as VALERIY, Vandana and Debra ([phone]). Patient plans to return to [facility] at discharge. Clinicals sent for review via secure email. Discharge plan: [facility]
--- NOTE | 2023-11-22 11:57 | NUR ---
CALLS PLACED TO BY THREE NURSES THIS AM WITH NO ANSWER OR RETURN CALL FOR CONSULTS. CHILD LIFE SPECIALIST AWARE.
[2023-11-22] MEDS ORDERED: cefTRIAXone 1 G in Water For Injection,Sterile 10 ML IV SCH (16:00)
--- NOTE | 2023-11-22 19:07 | NUR ---
Patient walked to room 317 with daughter independently. Night nurse aware. A&Ox3. VSS. Denies pain and discomfort. No further needs expressed.
--- NOTE | 2023-11-22 21:47 | NUR ---
PATIENT RESTING IN BED WATCHING TV. DENIES ANY PAIN AT THIS TIME. NEW IV SITE ESTABLISHED IN THE RIGHT WRIST. DENIES ANY CHEST PAIN OR SHORTNESS OF BREATH. CALL LIGHT IS WITHIN REACH. BED LOCKED AND IN LOW POSITION. BED ALARM ON.
[2023-11-23] VITALS (12 sets, daily range): BP systolic 144–181; BP diastolic 63–72; PULSE 79–93; TEMP 97.8–98.5
[2023-11-23 06:30] LABS: BASO # 0.1 K/mm3 (0.0-0.2); BASO % 0.4 % (0.0-2.0); EOS # 0.2 K/mm3 (0.0-0.7); EOS % 1.2 % (0.0-4.0); GRAN # 13.9 K/mm3 (1.4-6.5); GRAN % 77.6 % (42.2-75.2); LYMPH # 1.9 K/mm3 (1.2-3.4); LYMPH % 10.7 % (20.0-51.0); MEAN CELL VOLUME 93 fl (80.0-100.0); MEAN CORPUSCULAR HGB CONC 34 g/dl (33.0-37.0); MONO # 1.6 K/mm3 (0.1-0.6); MONO % 8.8 % (1.7-9.3); PLATELET COUNT 312 K/mm3 (130-400); RED BLOOD COUNT 2.98 M/mm3 (4.10-5.30); REDCELL DISTRIBUTION WIDTH-CV 11.9 % (11.5-14.5)
[2023-11-23 06:46] LABS: HEMATOCRIT 27.6 % (37.0-47.0); HEMOGLOBIN 9.3 g/dl (12.5-16.0); MEAN CORPUSCULAR HEMOGLOBIN 31 pg (27-31)
[2023-11-23 06:48] LABS: CALCIUM 8.4 mg/dL (8.4-10.2); CREATININE, serum 0.62 mg/dL (0.57-1.11); POTASSIUM 3.7 mEq/L (3.5-4.5)
[2023-11-23 07:47] LABS: BAND 6 % (0-10); EOSINOPHIL 1 % (0-4); HYPOCHROMIA 1+; LYMPHOCYTE 13 % (20.0-51.0); NEUTROPHILS 75 % (42.0-75.2); PLATELET ESTIMATE NORMAL (NORMAL)
--- NOTE | 2023-11-23 09:30 | NUR ---
PT AWAKE AND RESTING IN BED. 2L O2 VIA NC. DAUGHTER AT BEDSIDE. PT AMBULATING IN ROOM WITH DAUGHTER'S HELP. MEDICATION GIVEN PER eMAR. DENIES PAIN. CALL LIGHT WITHIN REACH. NO OTHER CONCERNS AT THIS TIME.
[2023-11-23] MEDS ORDERED: Furosemide 20 MG TAB PO SCH (16:19)
--- NOTE | 2023-11-23 20:33 | NUR ---
PATIENT IS RESTING IN BED WATCHING TV, DAUGHTER IS AT BEDSIDE. CURRENTLY DENIES ANY PAIN OR SHORTNESS OF BREATH. CALL LIGHT IS WITHIN REACH. BED LOCKED AND IN LOW POSITION.
[2023-11-23] MEDS ORDERED: hydrALAZINE 25 MG TAB PO SCH (23:40)
--- NOTE | 2023-11-23 23:41 | NUR ---
PATIENT MOST RECENT BLOOD PRESSURE IS 190/63. CALLED HOSPITALIST DR. SWAN, NEW ORDER RECEIVED FOR HYDRALAZINE 25 MG PO BID.
[2023-11-24] VITALS (8 sets, daily range): BP systolic 118–191; BP diastolic 62–76; PULSE 80–92; TEMP 97.5–98.4
[2023-11-24 06:47] LABS: MEAN CELL VOLUME 94 fl (80.0-100.0); MEAN CORPUSCULAR HGB CONC 33 g/dl (33.0-37.0); MEAN PLATELET VOLUME 10.2 fl (7.4-10.4); PLATELET COUNT 369 K/mm3 (130-400); RED BLOOD COUNT 2.99 M/mm3 (4.10-5.30); REDCELL DISTRIBUTION WIDTH-CV 12.3 % (11.5-14.5)
[2023-11-24 07:00] LABS: HEMOGLOBIN 9.3 g/dl (12.5-16.0); MEAN CORPUSCULAR HEMOGLOBIN 31 pg (27-31)
[2023-11-24 07:21] LABS: CALCIUM 8.5 mg/dL (8.4-10.2); CREATININE, serum 0.64 mg/dL (0.57-1.11); POTASSIUM 3.7 mEq/L (3.5-4.5)
[2023-11-24 07:33] LABS: BAND 3 % (0-10); BASOPHIL 1 % (0-2); EOSINOPHIL 1 % (0-4); LYMPHOCYTE 17 % (20.0-51.0); NEUTROPHILS 68 % (42.0-75.2); PLATELET ESTIMATE NORMAL (NORMAL)
--- NOTE | 2023-11-24 09:12 | NUR ---
Patient is resting in bed, alert and oriented x 4, Daughter at bedside. She had half of her breakfast. Assessment completed, meds given. No further needs at this time. Dr. Valera entering room. Call light within reach.
--- NOTE | 2023-11-24 09:23 | NUR ---
SW attended clinical rounds. Patient stable for discharge to SNF today. FREDRICK contacted Aida at [facility] to alert of discharge. Awaiting orders. FREDRICK reviewed Medicare IM form with patient and daughter. Patient agreeable to discharge and signed IM form. Original on chart and copy to patient. Discharge plan: [facility]
[2023-11-24] MEDS ORDERED: LASIX 20MG TABL20 MG PO (11:07)
[2023-11-24] MEDS ORDERED: LEVAQUIN 750MG750 M1 PO (11:08)
--- NOTE | 2023-11-24 11:20 | NUR ---
FREDRICK faxed discharge orders to [facility]. Discharge Plan: [facility]
--- NOTE | 2023-11-24 12:43 | NUR ---
FREDRICK received call from Aida at [facility] stating transport is pushed to [id number]. mortgage loan processing clerk notified.
--- NOTE | 2023-11-24 13:45 | NUR ---
[facility] to [facility] in [facility]. IV access was discontinued.
[2023-11-26] MEDS ORDERED: XARELTO STARTER20 MG PO (17:47)
== END 2023-11-24 13:40 | DRG 871 ==
LOC: COL.ER 15:36 → MEDICAL 18:22
PROVIDERS: Emergency Medicine; ADMIT Internal Medicine
DX: A41.9 Sepsis, unspecified organism (principal); I21.A1 Myocardial infarction type 2; J18.9 Pneumonia, unspecified organism; J96.20 Acute and chronic respiratory failure, unspecified whether with hypoxia or hypercapnia; N39.0 Urinary tract infection, site not specified; I50.32 Chronic diastolic (congestive) heart failure; E87.1 Hypo-osmolality and hyponatremia; Z20.822 Contact with and (suspected) exposure to COVID-19; J84.10 Pulmonary fibrosis, unspecified; Z66 Do not resuscitate; I11.0 Hypertensive heart disease with heart failure; M06.9 Rheumatoid arthritis, unspecified; G30.9 Alzheimer's disease, unspecified; J47.9 Bronchiectasis, uncomplicated; K21.9 Gastro-esophageal reflux disease without esophagitis; E78.5 Hyperlipidemia, unspecified; F02.80 Dementia in other diseases classified elsewhere, unspecified severity, without behavioral disturbance, psychotic disturbance, mood disturbance, and anxiety; E03.9 Hypothyroidism, unspecified; Z79.890 Hormone replacement therapy; Z90.89 Acquired absence of other organs; Z90.710 Acquired absence of both cervix and uterus; Z91.040 Latex allergy status; Z99.81 Dependence on supplemental oxygen; Z86.16 Personal history of COVID-19; Z79.899 Other long term (current) drug therapy; Z23 Encounter for immunization
CPT/HCPCS: J0692; J0696; J1650; J7030